=== PATIENT | female | born 1990 | race Caucasian/White ===

== ENCOUNTER 2016-12-25 15:55 | Emergency (ER) | payer SELFPAY ==
[2016-12-25] MEDS ORDERED: NORMAL SALINE 1000 ML 1,000 ML IV ONE (16:20)
[2016-12-25] MEDS ORDERED: ONDANSETRON HCL INJ/PF 4 MG/2 ML SDV IV ONE ×2 (16:21→17:45)
--- NOTE | 2016-12-25 16:22 | ER Document Report ---
ED Medical Screen (RME) - General Chief Complaint: Abdominal Pain Stated Complaint: NAUSEA,ABDOMINAL PAIN,CHILLS Time Seen by Provider: 12/25/16 16:19 Mode of Arrival: Ambulatory Information source: Patient TRAVEL OUTSIDE OF THE [place] IN LAST 30 DAYS: No - HPI Patient complains to provider of: abd pain Onset: This morning - pt with c/o abdominal pain with nausea since this am - Related Data Allergies/Adverse Reactions: No Known Allergies Allergy (Unverified 12/25/16 16:03) Past Medical History - Social History Chew tobacco use (# tins/day): No Frequency of alcohol use: None Drug Abuse: None Renal/ Medical History: Denies: Hx Peritoneal Dialysis Physical Exam - Vital signs Vitals: Temp Pulse Resp BP Pulse Ox 98.0 F 95 16 150/90 H 99 12/25/16 16:04 12/25/16 16:04 12/25/16 16:04 12/25/16 16:04 12/25/16 16:04 Course - Vital Signs Vital signs: Temp Pulse Resp BP Pulse Ox 98.0 F 95 16 150/90 H 99 12/25/16 16:04 12/25/16 16:04 12/25/16 16:04 12/25/16 16:04 12/25/16 16:04
[2016-12-25 16:43] LABS: ABSOLUTE LYMPHOCYTES (AUTO) 0.9 10^3/uL (0.5-4.7); ABSOLUTE MONOCYTES (AUTO) 0.4 10^3/uL (0.1-1.4); ABSOLUTE NEUT (AUTO) 5.1 10^3/uL (1.7-8.2); BASOPHILS % (AUTO) 0.5 % (0-2); HEMATOCRIT 41.7 % (36.0-47.0); HEMOGLOBIN 14.1 g/dL (12.0-15.5); HGB HCT DIFFERENCE 0.6; LYMPHOCYTES % (AUTO) 13.4 % (13-45); MEAN CORPUSCULAR HEMOGLOBIN 35.5 pg (27.0-33.4); MEAN CORPUSCULAR HGB CONC 33.8 g/dL (32.0-36.0); MEAN CORPUSCULAR VOLUME 105 fl (80-97); MONOCYTES % (AUTO) 5.6 % (3-13); RED BLOOD COUNT 3.98 10^6/uL (3.72-5.28); RED CELL DISTRIBUTION WIDTH 13.5 % (11.5-14.0); SEGMENTED NEUTROPHILS % (AUTO) 80.5 % (42-78); WHITE BLOOD COUNT 6.4 10^3/uL (4.0-10.5)
[2016-12-25 16:49] LABS: APPEARANCE,URINE CLEAR; BILIRUBIN,URINE NEGATIVE (NEGATIVE); GLUCOSE, URINE NEGATIVE (NEGATIVE); KETONES,URINE NEGATIVE (NEGATIVE); LEUKOCYTE ESTERASE,URINE NEGATIVE (NEGATIVE); NITRITE,URINE NEGATIVE (NEGATIVE); PROTEIN,URINE NEGATIVE (NEGATIVE); URINE SPECIFIC GRAVITY 1.004; UROBILINOGEN,URINE NEGATIVE mg/dL (<2.0)
[2016-12-25 17:10] LABS: ALANINE AMINOTRANSFERASE 36 U/L (9-52); ALBUMIN 5.3 g/dL (3.5-5.0); ALKALINE PHOSPHATASE 75 U/L (38-126); ANION GAP 16 (5-19); ASPARTATE AMINO TRANSFERASE 53 U/L (14-36); BILIRUBIN,DIRECT 0.4 mg/dL (0.0-0.4); BILIRUBIN,TOTAL 0.7 mg/dL (0.2-1.3); BLOOD UREA NITROGEN 9 mg/dL (7-20); CALCIUM 10.8 mg/dL (8.4-10.2); CARBON DIOXIDE 27 mmol/L (22-30); CHLORIDE 97 mmol/L (98-107); CREATININE RESULT 0.56 mg/dL (0.52-1.25); GLUCOSE 108 mg/dL (75-110); LIPASE 89.7 U/L (23-300); POTASSIUM 3.7 mmol/L (3.6-5.0); SODIUM 140.2 mmol/L (137-145); TOTAL PROTEIN 8.4 g/dL (6.3-8.2)
--- NOTE | 2016-12-25 17:26 | RADIOLOGY REPORT (SQ) ---
EXAM DESCRIPTION: ACUTE ABDOMEN SERIES COMPLETED DATE/TIME: 12/25/2016 4:43 pm REASON FOR STUDY: abd pain COMPARISON: None. NUMBER OF VIEWS: Three views. TECHNIQUE: Frontal chest, supine abdomen and upright/decubitus abdomen radiographic images acquired. LIMITATIONS: None. FINDINGS: CHEST: Lungs clear of infiltrates. FREE AIR: None. No abnormal gas collections. BOWEL GAS PATTERN: Nonobstructive pattern. No dilated loops or air fluid levels. CALCIFICATIONS: No suspicious calcifications. HARDWARE: None in the abdomen. SOFT TISSUES: No gross mass or suggestion of organomegaly. BONES: No acute fracture. No worrisome bone lesions. OTHER: No other significant finding. IMPRESSION: NO RADIOGRAPHIC EVIDENCE FOR ACUTE ABDOMINAL DISEASE. TECHNICAL DOCUMENTATION: JOB ID: [id number] [employer]- All Rights Reserved
[2016-12-25] MEDS ORDERED: METOCLOPRAMIDE HCL ORAL SOLN 10 MG/10 ML UDCUP PO ONE (17:45)
[2016-12-25] MEDS ORDERED: MAG HYDROX/AL HYDROX/SIMETH SUSP 30 ML UDCUP PO ONE (17:45)
[2016-12-25] MEDS ORDERED: LIDOCAINE 2% VISCOUS SOLN 20 ML UDCUP PO ONE (17:45)
--- NOTE | 2016-12-25 17:45 | ER Document Report ---
ED GI/ - General Mode of Arrival: Ambulatory Information source: Patient TRAVEL OUTSIDE OF THE [place] IN LAST 30 DAYS: No - HPI Similar symptoms previously: No Recently seen / treated by doctor: No <BEBETO GUEVARA - Last Filed: 12/25/16 21:14> <BIGG FRANCO - Last Filed: 12/25/16 22:05> - General Chief Complaint: Abdominal Pain Stated Complaint: NAUSEA,ABDOMINAL PAIN,CHILLS Time Seen by Provider: 12/25/16 16:19 - HPI Notes: Patient is a 26-year-old female presented emergency department for nausea, vomiting, and epigastric pain. Patient states she feels like she is having an acid burning in her upper abdomen and throat. Patient states that she has tried taking Rolaids and [place] but she vomited these medications. Patient's friend states that she felt warm like she had a fever but her temperature was not taken. Patient states her symptoms are worse with spicy food which she had last night. Patient is having normal bowel movements. Patient denies any vaginal discharged. Patient has no known allergies. (BEBETO GUEVARA) - Related Data Allergies/Adverse Reactions: No Known Allergies Allergy (Unverified 12/25/16 16:03) Past Medical History - General Information source: Patient - Social History Smoking Status: Current Every Day Smoker Cigarette use (# per day): Yes Chew tobacco use (# tins/day): No Smoking Education Provided: Yes - > 5 minutes Frequency of alcohol use: Social Drug Abuse: None Family History: None Patient has suicidal ideation: No Patient has homicidal ideation: No Surgical Hx: Negative <BEBETO GUEVARA - Last Filed: 12/25/16 21:14> Review of Systems - Review of Systems Constitutional: See HPI Cardiovascular: denies: Chest pain Gastrointestinal: Abdominal pain, Nausea, Vomiting. denies: Diarrhea Genitourinary: No symptoms reported Female Genitourinary: No symptoms reported. denies: Vaginal discharge <BEBETO GUEVARA - Last Filed: 12/25/16 21:14> - Review of Systems Constitutional: Chills. denies: Diaphoresis, Fever Cardiovascular: denies: Dizziness <BIGG FRANCO - Last Filed: 12/25/16 22:05> Physical Exam <BEBETO GUEVARA - Last Filed: 12/25/16 21:14> <BIGG FRANCO - Last Filed: 12/25/16 22:05> - Vital signs Vitals: Temp Pulse Resp BP Pulse Ox 98.0 F 95 16 150/90 H 99 12/25/16 16:04 12/25/16 16:04 12/25/16 16:04 12/25/16 16:04 12/25/16 16:04 - Notes Notes: GENERAL: Alert, interacts well. No acute distress. HEAD: Normocephalic, atraumatic. EYES: Pupils equal, round, and reactive to light. Extraocular movements intact. ENT: Oral mucosa moist, tongue midline. NECK: Full range of motion. Supple. Trachea midline. LUNGS: Clear to auscultation bilaterally, no wheezes, rales, or rhonchi. No respiratory distress. HEART: Regular rate and rhythm. No murmurs, gallops, or rubs. ABDOMEN: Soft, minimal tenderness to palpation over the epigastric region. No guarding, rebound, or rigidity. Non-distended. Bowel sounds present in all 4 quadrants. EXTREMITIES: Moves all 4 extremities spontaneously. No edema. No cyanosis. NEUROLOGICAL: Alert and oriented x3. Normal speech. PSYCH: Normal affect, normal mood. SKIN: Warm, dry, normal turgor. No rashes or lesions noted. (BEBETO GUEVARA) Course - Laboratory Result Diagrams: 12/25/16 16:30 12/25/16 16:30 <BEBETO GUEVARA - Last Filed: 12/25/16 21:14> - Laboratory Result Diagrams: 12/25/16 16:30 12/25/16 16:30 <BIGG FRANCO - Last Filed: 12/25/16 22:05> - Re-evaluation Re-evalutation: 12/25/16 17:49 Acute abdominal series unremarkable, CBC grossly unremarkable, CMP shows slightly elevated AST at 53 lipase normal, no evidence of obstruction or acute cholecystitis, urinalysis shows small blood, no leukocyte esterase, no signs of infection, hCG is negative. Patient's symptoms are classic for acid reflux disease. Patient will be given GI cocktail instructed to take ranitidine twice a day. Counseled on quitting smoking. Discharged home. (BIGG FRANCO) - Vital Signs Vital signs: Temp Pulse Resp BP Pulse Ox 97.9 F 79 18 145/85 H 100 12/25/16 18:27 12/25/16 18:27 12/25/16 18:27 12/25/16 18:27 12/25/16 18:27 - Laboratory Laboratory results interpreted by me: 12/25/16 12/25/16 12/25/16 16:30 16:30 16:30 MCV 105 H MCH 35.5 H Seg Neutrophils % 80.5 H Chloride 97 L Calcium 10.8 H AST 53 H Total Protein 8.4 H Albumin 5.3 H Urine Blood SMALL H Discharge <BEBETO GUEVARA - Last Filed: 12/25/16 21:14> <BIGG FRANCO - Last Filed: 12/25/16 22:05> - Discharge Clinical Impression: Tobacco abuse, Tobacco abuse counseling, GERD without esophagitis Hypertension Qualifiers: Hypertension type: unspecified Qualified Code(s): I10 - Essential (primary) hypertension Condition: Stable Disposition: HOME, SELF-CARE Instructions: Reflux Disease (GERD) ([facility]) Prescriptions: Ranitidine HCl [Zantac 75 mg Tablet] 75 mg PO BID #60 tablet Forms: Elevated Blood Pressure, Smoking Cessation Education Scribe Attestation: 12/25/16 22:05 I personally performed the services described in the documentation, reviewed and edited the documentation which was dictated to the scribe in my presence, and it accurately records my words and actions. (BIGG FRANCO) Scribe Documentation - Scribe Written by Sol:: Sol Marley, 12/25/2016 21:36 acting as scribe for :: Haley <BEBETO GUEVARA - Last Filed: 12/25/16 21:14>
[2016-12-25 18:28] VITALS: BP 145/85
== END 2016-12-25 18:28 | disposition home or self-care (01) ==
LOC: ER 15:55
DX: R10.13 Epigastric pain (principal); R11.2 Nausea with vomiting, unspecified; K21.9 Gastro-esophageal reflux disease without esophagitis; I10 Essential (primary) hypertension; R68.83 Chills (without fever); F17.210 Nicotine dependence, cigarettes, uncomplicated
CPT/HCPCS: 99406; 99284; 96374; 36415; 83690; 85025; 81025; 80053; 81001; 74022; J3490; J2405; J7030